=== PATIENT | female | born 1960 | race Caucasian/White ===

== ENCOUNTER → 2017-02-17 11:24 | Outpatient (CLI) | payer MEDICARE ==
[~2017-02-17] VITALS: Ht 162.6 cm; Wt 65.0 kg
[2017-02-17 13:32] VITALS: BP 128/82; Ht 162.6 cm; Wt 65.0 kg
== END | disposition home or self-care (01) ==
LOC: D.OPS 11:24
DX: M81.0 Age-related osteoporosis without current pathological fracture (principal)

== ENCOUNTER 2017-12-01 13:20 | Outpatient (CLI) | payer MEDICARE, MEDICAID ==
[~2017-12-01] VITALS: Ht 162.6 cm; Wt 65.0 kg
[2017-12-01 14:29] VITALS: Ht 162.6 cm; Wt 65.0 kg
== END 2017-12-01 14:39 | disposition home or self-care (01) ==
LOC: D.OPS 13:20
DX: M81.0 Age-related osteoporosis without current pathological fracture (principal)

== ENCOUNTER 2017-12-01 14:48 | Emergency (ER) | payer MEDICARE, MEDICAID ==
[~2017-12-01] VITALS: Ht 162.6 cm; Wt 65.0 kg
[2017-12-01 14:56] VITALS: Ht 162.6 cm; Wt 65.0 kg
[2017-12-01 16:46] VITALS: BP 136/87
== END 2017-12-01 16:45 | disposition home or self-care (01) ==
LOC: D.ER 14:48
DX: S80.12XA Contusion of left lower leg, initial encounter (principal); X58.XXXA Exposure to other specified factors, initial encounter; Y93.89 Activity, other specified; Y92.019 Unspecified place in single-family (private) house as the place of occurrence of the external cause; F17.200 Nicotine dependence, unspecified, uncomplicated

== ENCOUNTER → 2017-12-16 09:55 | Outpatient (CLI) | payer MEDICARE, MEDICAID ==
[2017-12-01 14:56] VITALS: BMI 24.6
== END | disposition home or self-care (01) ==
LOC: D.MRI 09:55
DX: M25.572 Pain in left ankle and joints of left foot (principal)

== ENCOUNTER → 2018-06-12 08:57 | Outpatient (CLI) | payer MEDICARE, MEDICAID ==
[2017-12-01 14:56] VITALS: BMI 24.6
--- NOTE | ~2018-06-12 | ST ---
PATIENT:KOSTAS MENDOZA MEDICAL RECORD: [id number] SEX: F LOCATION:[facility] ORDER #: ADMISSION DATE: 06/12/18 AGE OF PATIENT: 58 REFERRING PHYSICIAN: INTERPRETING PHYSICIAN: TIBURCIO ENRIQUEZ MD DATE OF SERVICE: 06/12/2018 PROCEDURE: Stress Cardiolite. INDICATIONS: Angina, hyperlipidemia. The patient was exercised on standard Lexiscan protocol for 5 minutes, terminated due to achievement of max target heart rate response with 26 mCi of sestamibi injected at peak stress, 9 mCi used previously for rest images. FINDINGS: Gated SPECT reveals preserved ejection fraction at 70% with good wall motion and thickening and brightening throughout all segments. SPECT imaging Cardiolite was used as myocardial fusion agent. There is homogeneous uptake throughout all segments at rest and stress with no evidence of inducible ischemia or previous infarction. OVERALL IMPRESSION: 1. This is a normal nuclear stress test with no evidence of inducible ischemia or previous infarction. 2. Gated SPECT reveals a preserved ejection fraction at 70%. In this patient with ongoing symptomatology, the current scan does not suggest the presence of hemodynamically significant coronary artery disease. Evaluate noncardiac etiology of chest pain. TRANSINT:[id number] Voice Confirmation ID: [id number] DOCUMENT ID: [id number] TIBURCIO ENRIQUEZ MD CC: GABE MILLER [id number] DICTATION DATE: 06/14/18 1207 BUSINESS DEVELOPMENT EXECUTIVE: 06/14/18 2144 DEP CLI 06/12/18 [facility] [address] [place] [address]
== END | disposition home or self-care (01) ==
LOC: D.HCCARDIO 06-08 11:00
DX: I20.9 Angina pectoris, unspecified (principal)

== ENCOUNTER → 2019-05-30 13:20 | Outpatient (CLI) | payer MEDICARE ==
[2017-12-01 14:56] VITALS: BMI 24.6
[2019-05-31 10:10] LABS: ANA REFLEX - DIRECT Negative (Negative)
[2019-06-01 11:10] LABS: ANGIOTENSIN CONVERTING ENZYME <5 U/L (14-82)
[2019-06-01 16:08] LABS: ANCA - ANTIMYELOPEROXIDASE <9.0 U/mL (0.0-9.0); ANCA - ANTIPROTEINASE 3 <3.5 U/mL (0.0-3.5); ANCA - ATYPICAL <1:20 titer (Neg:<1:20); ANCA - CYTOPLASMIC <1:20 titer (Neg:<1:20); ANCA - PERINUCLEAR <1:20 titer (Neg:<1:20)
[2019-06-03 15:08] LABS: FUNGAL - ASP FLAVUS Negative (Neg:<1:1); FUNGAL - ASP NIGER Negative (Neg:<1:1); FUNGAL - ASPER FUMIGATUS Negative (Neg:<1:1)
== END | disposition home or self-care (01) ==
LOC: D.LAB 13:20
PROVIDERS: ATTEND Internal Medicine Pulmonary Disease
DX: J44.9 Chronic obstructive pulmonary disease, unspecified (principal); R91.1 Solitary pulmonary nodule

== ENCOUNTER → 2020-01-28 13:10 | Outpatient (CLI) | payer MEDICARE ==
[2017-12-01 14:56] VITALS: BMI 24.6
== END | disposition home or self-care (01) ==
LOC: D.CT 13:10
PROVIDERS: ATTEND Family Medicine
DX: R91.1 Solitary pulmonary nodule (principal)

== ENCOUNTER → 2020-08-29 15:30 | Outpatient (CLI) | payer OTHER ==
[2017-12-01 14:56] VITALS: BMI 24.6
== END | disposition home or self-care (01) ==
LOC: D.RT 05-05 08:08
PROVIDERS: ATTEND Internal Medicine Pulmonary Disease
DX: R91.1 Solitary pulmonary nodule (principal)

== ENCOUNTER → 2020-09-01 12:45 | Outpatient (CLI) | payer OTHER ==
[2017-12-01 14:56] VITALS: BMI 24.6
== END | disposition home or self-care (01) ==
LOC: D.LAB 12:45
PROVIDERS: ATTEND Internal Medicine Pulmonary Disease
DX: J44.9 Chronic obstructive pulmonary disease, unspecified (principal); Z20.822 Contact with and (suspected) exposure to COVID-19

== ENCOUNTER → 2020-09-05 15:38 | Outpatient (CLI) | payer OTHER, MEDICAID ==
[2017-12-01 14:56] VITALS: BMI 24.6
== END | disposition home or self-care (01) ==
LOC: D.RT 08-29 16:00
PROVIDERS: ATTEND Internal Medicine Pulmonary Disease
DX: J44.9 Chronic obstructive pulmonary disease, unspecified (principal)

== ENCOUNTER 2020-11-18 11:30 | Outpatient (CLI) | payer OTHER, MEDICAID ==
[2017-12-01 14:56] VITALS: BMI 24.6
== END 2020-11-18 12:00 | disposition home or self-care (01) ==
LOC: D.MAMMO 11:30
PROVIDERS: ATTEND Family Medicine
DX: Z12.31 Encounter for screening mammogram for malignant neoplasm of breast (principal)

== ENCOUNTER → 2020-11-20 10:35 | Outpatient (CLI) | payer OTHER, MEDICAID ==
[2017-12-01 14:56] VITALS: BMI 24.6
== END | disposition home or self-care (01) ==
LOC: D.HCCARDIO 09:00
PROVIDERS: ATTEND Internal Medicine Cardiovascular Disease
DX: I20.9 Angina pectoris, unspecified (principal)